=== PATIENT | male | born 1995 | race Caucasian/White ===

== ENCOUNTER 2020-04-13 16:34 | Emergency (ER) | payer BC, OTHER ==
[2020-04-13] MEDS ORDERED: DICYCLOMINE 10 MG CAPSULE PO STA (17:18)
[2020-04-13] MEDS ORDERED: HYOSCYAMINE SL 0.125 MG TABLET SL STA (17:18)
--- NOTE | 2020-04-13 17:23 | ED Physician Documentation ---
PD HPI ABD PAIN - Stated complaint Stated Complaint: ABD PX - Chief complaint Chief Complaint: Abd Pain - History obtained from History obtained from: Patient - History of Present Illness Timing - onset: Chronic Timing - duration: Days (1) Timing - details: Gradual onset, Waxing and waning Pain level max: 5 Pain level now: 3 Quality: Cramping, Aching, Pain Location: All over / everywhere Improved by: Other (nothing) Worsened by: Eating Associated symptoms: No: Fever, Hematemesis, Constipation, Melena, Hematochezia Recently seen: Not recently seen - Additional information Additional information: 24-year-old male presents to the emergency department complaining of abdominal pain today. He states that he has abdominal pain nearly daily, states worse today than usual. He states normally he feels better after having a bowel movement, but today the pain is continued. He states he self-induced vomiting t o see if this would help, but it did not. He states he has been diagnosed with IBS. He is on medications, but he is not sure which ones. No fevers. He states that he rarely drinks alcohol. Does use marijuana. Review of Systems Constitutional: denies: Fever, Chills Skin: denies: Rash Musculoskeletal: denies: Neck pain, Back pain Neurologic: denies: Headache PD PAST MEDICAL HISTORY - Past Medical History Past Medical History: Yes Cardiovascular: None Respiratory: None Neuro: None Endocrine/Autoimmune: None GI: Crohn's disease : None HEENT: None Psych: None Musculoskeletal: None Derm: None - Past Surgical History Past Surgical History: No - Present Medications Home Medications: Ambulatory Orders Medication Instructions Recorded Confirmed Hyoscyamine Sulfate [Levsin-Sl] 0.125 mg SL Q6H PRN #20 tab.subl 04/13/20 Imipramine [Tofranil] 50 mg PO DAILY PM 04/13/20 04/13/20 - Allergies Allergies/Adverse Reactions: Allergies Allergy/AdvReac Type Severity Reaction Status Date / Time No Known Drug Allergies Allergy Verified 04/13/20 16:42 - Social History Does the pt smoke?: No Smoking Status: Never smoker Does the pt drink ETOH?: No Does the pt have substance abuse?: No - Immunizations Immunizations are current?: Yes - POLST Patient has POLST: No PD ED PE NORMAL - Vitals Vital signs reviewed: Yes - General General: Alert and oriented X 3, No acute distress - HEENT HEENT: Moist mucous membranes - Neck Neck: Supple, no meningeal sign - Cardiac Cardiac: RRR, Strong equal pulses - Respiratory Respiratory: No respiratory distress, Clear bilaterally - Abdomen Abdomen: Soft, Non tender, Non distended - Derm Derm: Warm and dry - Neuro Neuro: Alert and oriented X 3 - Psych Psych: Normal mood, Normal affect Results - Vitals Vitals: Vital Signs - 24 hr 04/13/20 04/13/20 16:38 19:08 Temperature 36.4 C L 36.9 C Heart Rate 95 107 H Respiratory 16 16 Rate Blood Pressure 135/76 H 130/81 H O2 Saturation 97 100 Oxygen O2 Source Room air - Labs Labs: Laboratory Tests 04/13/20 04/13/20 17:52 17:52 WBC 17.9 H RBC 5.10 Hgb 14.1 Hct 44.4 MCV 87.1 MCH 27.6 MCHC 31.8 L RDW 12.9 Plt Count 287 MPV 9.3 Neut # (Auto) 15.7 H Lymph # (Auto) 1.0 L Mcleod # (Auto) 1.0 Eos # (Auto) 0.1 Baso # (Auto) 0.1 Absolute Nucleated RBC 0.00 Nucleated RBC % 0.0 Sodium 137 Potassium 3.5 Chloride 100 L Carbon Dioxide 27 Anion Gap 10.0 BUN 13 Creatinine 0.9 Estimated GFR (MDRD) 105 Glucose 134 H Calcium 9.4 Total Bilirubin 1.5 H AST 28 ALT 22 Alkaline Phosphatase 60 Total Protein 7.8 Albumin 4.7 Globulin 3.1 Albumin/Globulin Ratio 1.5 Lipase 31 PD MEDICAL DECISION MAKING - ED course Complexity details: reviewed results, re-evaluated patient, considered differential, d/w patient ED course: Symptoms resolved with Levsin and Bentyl. Abdomen is soft, nontender nondistended on serial exam. No evidence of appendicitis. Does have a leukocytosis. Unclear if this is acute or chronic. Tolerating p.o. without difficulty. Warnings of appendicitis given at bedside. As patient is currently asymptomatic, will have him follow-up with his doctor for further care. Patient counseled regarding signs and symptoms for which I believe and urgent r e-evaluation would be necessary. Patient with good understanding of and agreement to plan and is comfortable going home at this time This document was made in part using voice recognition software. While efforts are made to proofread this document, sound alike and grammatical errors may occur. Departure - Departure Disposition: 01 Home, Self Care Clinical Impression: Abdominal pain Qualifiers: Abdominal location: unspecified location Qualified Code(s): R10.9 - Unspecified abdominal pain Condition: Good Instructions: ED Abdominal Pain Unkn Cause Follow-Up: Camilla Hernandez PA-C [Primary Care Provider] - Within 3 Days Prescriptions: Hyoscyamine Sulfate [Levsin-Sl] 0.125 mg SL Q6H PRN #20 tab.subl PRN Reason: Abdominal Pain Comments: Return if you worsen. We will trial you on Levsin at home. Bentyl has also been shown to help irritable bowel syndrome. You do have an elevated white blood cell count today, if your symptoms return or worsen, you should return for repeat evaluation. This could be something such as an early appendicitis, though your pain is not in the typical location. If you continue to improve as expected, you can follow-up with your doctor. Discharge Date/Time: 04/13/20 19:15
[2020-04-13 17:57] LABS: BASOPHILS # (AUTO) 0.1 10^3/uL (0.0-0.1); BASOPHILS % (AUTO) 0.3 %; EOSINOPHILS # (AUTO) 0.1 10^3/uL (0.0-0.7); EOSINOPHILS % (AUTO) 0.5 %; HGB - HEMOGLOBIN 14.1 g/dL (14.0-18.0); LYMPHOCYTES % (AUTO) 5.5 %; MEAN CORPUSCULAR HEMOGLOBIN 27.6 pg (27.0-31.0); MEAN CORPUSCULAR HGB CONC 31.8 g/dL (32.0-36.0); MEAN CORPUSCULAR VOLUME 87.1 fL (80.0-94.0); MEAN PLATELET VOLUME 9.3 fL (7.4-11.4); MONOCYTES % (AUTO) 5.5 %; NEUTROPHILS # (AUTO) 15.7 10^3/uL (1.5-6.6); NEUTROPHILS % (AUTO) 87.8 %; PLT - PLATELET COUNT 287 10^3/uL (130-450); RED CELL DISTRIBUTION WIDTH 12.9 % (12.0-15.0); WHITE BLOOD COUNT 17.9 x10^3/uL (4.8-10.8)
[2020-04-13 18:08] LABS: ALBUMIN 4.7 g/dL (3.2-5.5); ALBUMIN/GLOBULIN RATIO 1.5 (1.0-2.2); BILIRUBIN,TOTAL 1.5 mg/dL (0.2-1.0); CALCIUM 9.4 mg/dL (8.5-10.3); CREATININE 0.9 mg/dL (0.6-1.2); TOTAL PROTEIN 7.8 g/dL (6.7-8.2)
[2020-04-13 19:09] VITALS: BP 130/81
== END 2020-04-13 19:15 | disposition home or self-care (01) ==
LOC: ED 16:34
DX: R10.9 Unspecified abdominal pain (principal); D72.829 Elevated white blood cell count, unspecified; Z87.19 Personal history of other diseases of the digestive system
CPT/HCPCS: 36415; 80053; 83690; 85025; 99283; 99284; A9270